=== PATIENT | male | born 1955 | race Caucasian/White ===

== ENCOUNTER 2017-01-23 06:59 | Emergency (ER) | payer BC ==
[2017-01-23] MEDS ORDERED: SODIUM CHLORIDE 0.9% 1,000 ML IV STA (07:22)
--- NOTE | 2017-01-23 07:28 | ED ---
Extremity Problem HPI - General Chief complaint: Extremity Problem,Nontraumatic Stated complaint: left arm numbness Time Seen by Provider: 01/23/17 07:10 Source: patient, RN notes reviewed Mode of arrival: wheelchair Limitations: no limitations - History of Present Illness Initial comments: This is a 61-year-old male with a history of Waldenstrm's who states he had the onset this morning while in the shower noticing his left arm was not feeling right was demonstrating some numbness. He denies any weakness to the arm he denies any recent headaches he does occasionally get headaches when he gets constipated. Denies any blurry vision head neck or back pain he is left- hand dominant he's noticed no difference in his strength balance and no other neurological findings. He does admit he is been doing a lot of work on his garage including last night putting down a match in the garage. He believes he may have strained himself. He does also state recently he had Dopplers done of all of his arteries from his doctor who is a vascular specialist. He does not smoke does not drink alcohol denies any substance abuse denies any other trauma fevers chills sweats or other symptoms. MD Complaint: other - Related Data Home Medications Medication Instructions Recorded Confirmed Atorvastatin [Lipitor] 10 mg PO HS 11/17/15 01/23/17 Calcium Carbonate [Calcium] 600 mg PO DAILY 01/23/17 01/23/17 Cholecalciferol [Vitamin D3] 1,000 unit PO DAILY 01/23/17 01/23/17 Fluticasone Nasal [place] [Flonase 2 spr EA NOSTRIL HS PRN 01/23/17 01/23/17 Nasal [place]] Loratadine [Claritin] 10 mg PO DAILY 01/23/17 01/23/17 Magnesium 200 mg PO DAILY 01/23/17 01/23/17 Montelukast [Singulair] 10 mg PO HS 01/23/17 01/23/17 [place]-3 Fatty Acids/Fish Oil [Fish 1 cap PO DAILY 01/23/17 01/23/17 Oil 1,000 mg Softgel] Zinc 50 mg PO DAILY 01/23/17 01/23/17 amLODIPine [Norvasc] 10 mg PO HS 01/23/17 01/23/17 Previous Rx's Medication Instructions Recorded Ibuprofen 800 mg PO Q6HR PRN #20 tablet 01/23/17 Allergies Allergy/AdvReac Type Severity Reaction Status Date / Time No Known Allergies Allergy Verified 01/23/17 07:38 Review of Systems ROS Statement: Those systems with pertinent positive or pertinent negative responses have been documented in the HPI. ROS Other: All systems not noted in ROS Statement are negative. Past Medical History Past Medical History: Hyperlipidemia, Hypertension Additional Past Medical History / Comment(s): Waldenstrom Macroglobulinemia History of Any Multi-Drug Resistant Organisms: None Reported Past Surgical History: No Surgical Hx Reported Past Anesthesia/Blood Transfusion Reactions: No Reported Reaction Past Psychological History: No Psychological Hx Reported Smoking Status: Never smoker Past Alcohol Use History: None Reported Past Drug Use History: None Reported General Exam - General Exam Comments Initial Comments: This is a well-developed well-nourished awake alert oriented 3 male Limitations: no limitations General appearance: alert, in no apparent distress Head exam: Present: atraumatic, normocephalic, normal inspection Eye exam: Present: normal appearance, PERRL, EOMI. Absent: scleral icterus, conjunctival injection, periorbital swelling ENT exam: Present: normal exam, mucous membranes moist Neck exam: Present: normal inspection, full ROM. Absent: tenderness, meningismus, lymphadenopathy Respiratory exam: Present: normal lung sounds bilaterally. Absent: respiratory distress, wheezes, rales, rhonchi, stridor Cardiovascular Exam: Present: regular rate, normal rhythm, normal heart sounds. Absent: systolic murmur, diastolic murmur, rubs, gallop, clicks GI/Abdominal exam: Present: soft, normal bowel sounds. Absent: distended, tenderness, guarding, rebound, rigid Extremities exam: Present: normal inspection, full ROM, normal capillary refill. Absent: tenderness, pedal edema, joint swelling, calf tenderness Back exam: Present: normal inspection Neurological exam: Present: alert, oriented X3, CN II-XII intact, reflexes normal, other (Patient states on light touch she has no different from left to right side he does state feels numb however when I squeeze his bicep tricep and forearm musculature.) Psychiatric exam: Present: normal affect, normal mood Skin exam: Present: warm, dry, intact, normal color. Absent: rash Course Vital Signs 01/23/17 01/23/17 01/23/17 07:02 07:15 07:30 Temperature 98.9 F 98.2 F 98.5 F Pulse Rate 90 90 84 Respiratory 16 17 16 Rate Blood Pressure 156/81 149/76 137/78 O2 Sat by Pulse 94 L 95 95 Oximetry 01/23/17 01/23/17 07:45 08:00 Temperature 98.3 F 98.0 F Pulse Rate 92 83 Respiratory 17 17 Rate Blood Pressure 156/81 151/81 O2 Sat by Pulse 95 95 Oximetry - Reevaluation(s) Reevaluation #1: 01/23/17 07:28 I did perform a NIH stroke scale is number is 0 Medical Decision Making - Medical Decision Making Reevaluation patient finds he is feeling improved the presentation is consistent with a musculoskeletal etiology/cervical radicular etiology. We did a long discussion regarding the findings patient is able to take ibuprofen I did recommend this. He is follow-up with Dr. rosas when necessary - Lab Data Result diagrams: 01/23/17 07:30 01/23/17 07:30 Lab Results 01/23/17 01/23/17 01/23/17 Range/Units 07:30 07:30 07:30 WBC 5.1 (3.8-10.6) k/uL RBC 4.65 (4.30-5.90) m/uL Hgb 14.6 (13.0-17.5) gm/dL Hct 43.0 (39.0-53.0) % MCV 92.4 (80.0-100.0) fL MCH 31.4 (25.0-35.0) pg MCHC 34.0 (31.0-37.0) g/dL RDW 12.7 (11.5-15.5) % Plt Count 209 (150-450) k/uL Neutrophils % 59 % Lymphocytes % 21 % Monocytes % 12 % Eosinophils % 5 % Basophils % 1 % Neutrophils # 3.0 (1.3-7.7) k/uL Lymphocytes # 1.1 (1.0-4.8) k/uL Monocytes # 0.6 (0-1.0) k/uL Eosinophils # 0.2 (0-0.7) k/uL Basophils # 0.0 (0-0.2) k/uL PT (9.0-12.0) sec INR (<1.2) APTT (22.0-30.0) sec Sodium 141 (137-145) mmol/L Potassium 4.4 (3.5-5.1) mmol/L Chloride 106 (98-107) mmol/L Carbon Dioxide 25 (22-30) mmol/L Anion Gap 10 mmol/L BUN 17 (9-20) mg/dL Creatinine 1.00 (0.66-1.25) mg/dL Est GFR (MDRD) Af Amer >60 (>60 ml/min/1.73 sqM) Est GFR (MDRD) Non-Af >60 (>60 ml/min/1.73 sqM) Glucose 101 H (74-99) mg/dL POC Glucose (mg/dL) (75-99) mg/dL POC Glu [place] ID Calcium 9.3 (8.4-10.2) mg/dL Magnesium 2.2 (1.6-2.3) mg/dL Total Bilirubin 0.8 (0.2-1.3) mg/dL AST 25 (17-59) U/L ALT 41 (21-72) U/L Alkaline Phosphatase 88 (38-126) U/L Total Creatine Kinase 114 (55-170) U/L CK-MB (CK-2) 1.7 (0.0-2.4) ng/mL CK-MB (CK-2) Rel Index 1.5 Troponin I <0.012 (0.000-0.034) ng/mL Total Protein 7.1 (6.3-8.2) g/dL Albumin 3.6 (3.5-5.0) g/dL TSH 2.780 (0.465-4.680) mIU/L 01/23/17 01/23/17 Range/Units 07:30 07:45 WBC (3.8-10.6) k/uL RBC (4.30-5.90) m/uL Hgb (13.0-17.5) gm/dL Hct (39.0-53.0) % MCV (80.0-100.0) fL MCH (25.0-35.0) pg MCHC (31.0-37.0) g/dL RDW (11.5-15.5) % Plt Count (150-450) k/uL Neutrophils % % Lymphocytes % % Monocytes % % Eosinophils % % Basophils % % Neutrophils # (1.3-7.7) k/uL Lymphocytes # (1.0-4.8) k/uL Monocytes # (0-1.0) k/uL Eosinophils # (0-0.7) k/uL Basophils # (0-0.2) k/uL PT 11.7 (9.0-12.0) sec INR 1.2 H (<1.2) APTT 27.1 (22.0-30.0) sec Sodium (137-145) mmol/L Potassium (3.5-5.1) mmol/L Chloride (98-107) mmol/L Carbon Dioxide (22-30) mmol/L Anion Gap mmol/L BUN (9-20) mg/dL Creatinine (0.66-1.25) mg/dL Est GFR (MDRD) Af Amer (>60 ml/min/1.73 sqM) Est GFR (MDRD) Non-Af (>60 ml/min/1.73 sqM) Glucose (74-99) mg/dL POC Glucose (mg/dL) 96 (75-99) mg/dL POC Glu [place] ID McDaid, Pilar Calcium (8.4-10.2) mg/dL Magnesium (1.6-2.3) mg/dL Total Bilirubin (0.2-1.3) mg/dL AST (17-59) U/L ALT (21-72) U/L Alkaline Phosphatase (38-126) U/L Total Creatine Kinase (55-170) U/L CK-MB (CK-2) (0.0-2.4) ng/mL CK-MB (CK-2) Rel Index Troponin I (0.000-0.034) ng/mL Total Protein (6.3-8.2) g/dL Albumin (3.5-5.0) g/dL TSH (0.465-4.680) mIU/L - EKG Data -: EKG Interpreted by Me EKG shows normal: sinus rhythm, axis, intervals, QRS complexes, ST-T waves (EKG shows normal sinus rhythm a 75 MO 164 QRS 90 QT since QTC of 364/[address]-T wave changes.) Rate: normal - Radiology Data Radiology results: report reviewed (I did review the imaging and reports no acute findings.), image reviewed (CT of the C-spine shows evidence of arthropathy.) Disposition Clinical Impression: Cervical radiculopathy, Numbness and tingling in left arm Disposition: HOME SELF-CARE Condition: Good Instructions: Cervical Radiculopathy (ED), Paresthesia (ED) Prescriptions: Ibuprofen 800 mg PO Q6HR PRN #20 tablet PRN Reason: Pain Referrals: Jonh Luciano MD [Primary Care Provider] - 1-2 days
[2017-01-23 07:50] LABS: Glucose,Whole Blood 96 mg/dL (75-99)
[2017-01-23 07:51] LABS: Basophils % (A) 1 %; CH 31.7; CHCM 34.4; Eosinophils # (A) 0.2 k/uL (0-0.7); Eosinophils % (A) 5 %; HDW 2.82; HGB 14.6 gm/dL (13.0-17.5); Luc # (Auto) 0.13; Luc % (Auto) 3; Lymphocytes # (A) 1.1 k/uL (1.0-4.8); Lymphocytes % (A) 21 %; MCH 31.4 pg (25.0-35.0); MCV 92.4 fL (80.0-100.0); Mean Platelet Volume 7.3; Monocytes # (A) 0.6 k/uL (0-1.0); Monocytes % (A) 12 %; Neutrophils % (A) 59 %; RBC 4.65 m/uL (4.30-5.90); RDW 12.7 % (11.5-15.5); WBC 5.1 k/uL (3.8-10.6); WBC (Perox) 4.97
[2017-01-23 08:01] LABS: INR 1.2 (<1.2); Partial Thromboplastin Time 27.1 sec (22.0-30.0); Prothrombin Time 11.7 sec (9.0-12.0)
[2017-01-23 08:02] LABS: ALT 41 U/L (21-72); AST 25 U/L (17-59); Alkaline Phosphatase 88 U/L (38-126); Anion Gap 10 mmol/L; Blood Urea Nitrogen 17 mg/dL (9-20); Calcium 9.3 mg/dL (8.4-10.2); Carbon Dioxide 25 mmol/L (22-30); Chloride 106 mmol/L (98-107); Glucose 101 mg/dL (74-99); Magnesium 2.2 mg/dL (1.6-2.3); Non-African American GFR(MDRD) >60 (>60 ml/min/1.73 sqM); Potassium 4.4 mmol/L (3.5-5.1); Sodium 141 mmol/L (137-145); Total Bilirubin 0.8 mg/dL (0.2-1.3); Total Protein 7.1 g/dL (6.3-8.2)
[2017-01-23 08:17] VITALS: RESP 17
[2017-01-23 08:19] LABS: Creatine Kinase 114 U/L (55-170)
--- NOTE | 2017-01-23 08:23 | CT ---
EXAMINATION TYPE: CT brain ladan alfonso DATE OF EXAM: 01/23/2017 COMPARISON: NONE HISTORY: 61-year-old male with pain and Left arm numbness CT DLP: 1398.1 mGycm Automated exposure control for dose reduction was used. Technique: Examination of the head was done in axial plane without intravenous contrast. Coronal and sagittal reconstructions performed. CT of the cervical spine was obtained in axial plane without intravenous injection of contrast mater ial. Coronal and sagittal reformatted images were obtained from the axial views for evaluation of f ractures, spinal alignment and canal. FINDINGS: Head: There is no evidence of acute intracranial hemorrhage, acute ischemic changes, mass, mass-effect, or extra-axial fluid collection. There is no effacement of cerebral sulci or basal subarachnoid cister ns. There is no hydrocephalus. There is no midline shift. Diaz-white matter distinction is preserv ed. Paranasal sinuses and mastoid air cells are well pneumatized. Orbits and globes are intact. Leftward nasal septal deviation. No calvarial fracture. Cervical spine: No craniocervical junction abnormality, predental space widening, or prevertebral soft tissue swellin g. There is facet and uncovertebral joint arthropathy throughout with trace grade 1 anterolisthesis at C 5-C6 and C7-T1. No acute fracture of the cervical spine. Mild to moderate multilevel disc/endplate degenerative changes noted with disc osteophyte complexes c ausing variable mild to moderate spinal canal narrowing at C3-C4 and C4-C5. Assessment of the spinal canal from C6-C7 and below is limited due to artifact from the patient's shoulders. 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 Variable mild neuroforaminal stenoses throughout. Sagittal and coronal reformatted images confirm above findings. COMBINED IMPRESSION: 1. No acute intracranial abnormality seen. 2. No acute fracture of the cervical spine. There are moderate overall spondylotic changes with trace grade 1 anterolisthesis at C5-C6 and C7-T1. Mild, possibly moderate spinal canal stenoses at C3-C4 a nd C4-C5.
--- NOTE | 2017-01-23 08:25 | XR ---
EXAMINATION TYPE: XR chest 2V DATE OF EXAM: 01/23/2017 COMPARISON: 12/01/2009 HISTORY: 61 year-old male altered mental status, left arm numbness today TECHNIQUE: PA and lateral views FINDINGS: The cardiomediastinal silhouette, aorta, and pulmonary vasculature are within normal limits. Mild int erstitial prominence likely chronic senescent change. Otherwise, lungs and pleural spaces are clear. 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 IMPRESSION: 1. Chronic changes without acute cardiopulmonary process. 2. 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
[2017-01-23 08:32] LABS: Creatine Kinase MB 1.7 ng/mL (0.0-2.4); Troponin I <0.012 ng/mL (0.000-0.034)
[2017-01-23 09:03] VITALS: BP 127/73; PULSE 78; TEMP 97.8
== END 2017-01-23 09:02 | disposition home or self-care (01) ==
LOC: EC 06:59
DX: M54.12 Radiculopathy, cervical region (principal); R20.0 Anesthesia of skin; E78.5 Hyperlipidemia, unspecified; I10 Essential (primary) hypertension; Z79.899 Other long term (current) drug therapy
CPT/HCPCS: 36415; 70450; 71020; 72125; 80053; 82550; 82553; 83735; 84443; 84484; 85025; 85610; 85730; 93005; 96360; 99285

== ENCOUNTER 2017-05-14 18:23 | Emergency (ER) | payer BC ==
[2017-05-14 19:32] LABS: Appearance,Urine Clear (Clear); Bilirubin,Urine Negative (Negative); Blood,Urine Moderate (Negative); Color,Urine Yellow; Glucose,Urine (UA) Negative (Negative); Hyaline Casts,Urine 5 /lpf (0-2); Ketones,Urine Negative (Negative); Leukocyte Esterase,Urine Negative (Negative); Mucus,Urine Occasional /hpf; PH, Urine 5.5 (5.0-8.0); Protein,Urine Trace (Negative); RBC,Urine 60 /hpf (0-5); Specific Gravity,Urine 1.019 (1.001-1.035); Squamous Epithelial Cell,Urine <1 /hpf (0-4); WBC,Urine 2 /hpf (0-5)
[2017-05-14 19:41] LABS: Basophils # (A) 0.1 k/uL (0-0.2); Basophils % (A) 1 %; Eosinophils # (A) 0.2 k/uL (0-0.7); Eosinophils % (A) 3 %; HCT 42.8 % (39.0-53.0); HGB 14.1 gm/dL (13.0-17.5); Lymphocytes # (A) 1.3 k/uL (1.0-4.8); Lymphocytes % (A) 17 %; MCH 30.1 pg (25.0-35.0); MCHC 32.9 g/dL (31.0-37.0); MCV 91.3 fL (80.0-100.0); Mean Platelet Volume 7.2; Monocytes # (A) 0.6 k/uL (0-1.0); Monocytes % (A) 8 %; Neutrophils # (A) 5.6 k/uL (1.3-7.7); Neutrophils % (A) 70 %; Platelet Count 251 k/uL (150-450); RBC 4.69 m/uL (4.30-5.90); RDW 13.4 % (11.5-15.5)
[2017-05-14 19:53] LABS: ALT 26 U/L (21-72); AST 26 U/L (17-59); Albumin 4.1 g/dL (3.5-5.0); Alkaline Phosphatase 105 U/L (38-126); Amylase 47 U/L (30-110); Anion Gap 11 mmol/L; Blood Urea Nitrogen 24 mg/dL (9-20); Calcium 9.7 mg/dL (8.4-10.2); Carbon Dioxide 29 mmol/L (22-30); Chloride 101 mmol/L (98-107); Glucose 117 mg/dL (74-99); Lipase 43 U/L (23-300); Potassium 4.6 mmol/L (3.5-5.1); Sodium 141 mmol/L (137-145); Total Bilirubin 0.8 mg/dL (0.2-1.3); Total Protein 8.2 g/dL (6.3-8.2)
--- NOTE | 2017-05-14 20:01 | CT ---
EXAMINATION TYPE: CT abdomen pelvis wo con DATE OF EXAM: 05/14/2017 COMPARISON: 11/16/2015 HISTORY: Lower abdominal pain. Hematuria CT DLP: 605.1 mGycm Automated exposure control for dose reduction was used. TECHNIQUE: Helical acquisition of images was performed from the lung bases through the pelvis. FINDINGS: Lung bases are clear of consolidation. There is no pleural effusion. Heart size is normal. There is a 1 cm cyst in the left lobe of the liver. There is a 1 senators cyst in the lateral right l obe of the liver. Gallbladder is normal. Spleen appears normal. There is no pancreatic mass. Bile malika ts are not dilated. There is no adrenal mass. Kidneys have normal size and contour. There is no hydronephrosis. Ureters a re not dilated. There is no retroperitoneal adenopathy. There is no ascites. Appendix appears normal. There are multiple diverticula in the sigmoid colon. There is no sign of diverticulitis. Bladder dis tends smoothly. I see no intestinal wall thickening. There is no evidence of a bowel obstruction. The re is no sign of a hernia. I see no focal bony destructive process. There is spondylosis in the lower lumbar spine from L3 to S1. There is mild spinal stenosis at L3-4 due to calcification in posterior disc herniation. IMPRESSION: STABLE HEPATIC CYSTS. NORMAL APPENDIX. NO SIGN OF ACUTE ABDOMEN AND PELVIS. SIGMOID DIVERTICULOSIS WI THOUT DIVERTICULITIS. I DO NOT SEE A CAUSE FOR ABDOMINAL PAIN. NONOBSTRUCTING 3 MM LEFT RENAL CALCULU S. THIS APPEARS INCREASED COMPARED TO OLD CT SCAN.
--- NOTE | 2017-05-14 20:30 | ED ---
General Adult HPI - General Chief complaint: Abdominal Pain Stated complaint: abdominal pain Time Seen by Provider: 05/14/17 18:56 Source: patient, RN notes reviewed Mode of arrival: ambulatory Limitations: no limitations - History of Present Illness Initial comments: 61-year-old male presents for evaluation of left flank and left lower abdominal pain. Pain began suddenly. Patient denies any hematuria or dysuria. Denies any testicular or scrotal pain. Pain was associated with nausea, no significant vomiting. No upper abdominal pain or chest pain. No fever or chills. Pain was resolving at the time my evaluation. No known history of kidney stones. Patient does have past medical history of hypertension and lymphoma currently in remission. - Related Data Home Medications Medication Instructions Recorded Confirmed Atorvastatin [Lipitor] 10 mg PO HS 11/17/15 05/14/17 Calcium Carbonate [Calcium] 600 mg PO DAILY 01/23/17 05/14/17 Cholecalciferol [Vitamin D3] 1,000 unit PO DAILY 01/23/17 05/14/17 Loratadine [Claritin] 10 mg PO DAILY PRN 01/23/17 05/14/17 Magnesium 200 mg PO DAILY 01/23/17 05/14/17 Montelukast [Singulair] 10 mg PO HS 01/23/17 05/14/17 [place]-3 Fatty Acids/Fish Oil [Fish 1 cap PO DAILY 01/23/17 05/14/17 Oil 1,000 mg Softgel] Zinc 50 mg PO DAILY 01/23/17 05/14/17 amLODIPine [Norvasc] 10 mg PO HS 01/23/17 05/14/17 Allergies Allergy/AdvReac Type Severity Reaction Status Date / Time No Known Allergies Allergy Verified 05/14/17 19:21 Review of Systems ROS Statement: Those systems with pertinent positive or pertinent negative responses have been documented in the HPI. ROS Other: All systems not noted in ROS Statement are negative. Past Medical History Past Medical History: Cancer, Hypertension Additional Past Medical History / Comment(s): Waldenstrom Macroglobulinemia, lymphoma History of Any Multi-Drug Resistant Organisms: None Reported Past Surgical History: No Surgical Hx Reported Past Anesthesia/Blood Transfusion Reactions: No Reported Reaction Past Psychological History: No Psychological Hx Reported Smoking Status: Never smoker Past Alcohol Use History: None Reported Past Drug Use History: None Reported General Exam Limitations: no limitations General appearance: alert, in no apparent distress Head exam: Present: atraumatic, normocephalic Eye exam: Present: normal appearance, PERRL, EOMI ENT exam: Present: normal exam Neck exam: Present: normal inspection. Absent: tenderness, meningismus Respiratory exam: Present: normal lung sounds bilaterally. Absent: respiratory distress, wheezes, rales Cardiovascular Exam: Present: regular rate, normal rhythm GI/Abdominal exam: Present: soft. Absent: distended, tenderness, guarding Extremities exam: Present: normal inspection, normal capillary refill. Absent: pedal edema Back exam: Present: normal inspection, full ROM. Absent: CVA tenderness (R), CVA tenderness (L) Neurological exam: Present: alert, oriented X3, CN II-XII intact. Absent: motor sensory deficit Psychiatric exam: Present: normal affect, normal mood Skin exam: Present: warm, dry, intact. Absent: cyanosis, diaphoretic Course Vital Signs 05/14/17 18:28 Temperature 97.8 F Pulse Rate 74 Respiratory 20 Rate Blood Pressure 105/58 O2 Sat by Pulse 99 Oximetry - Reevaluation(s) Reevaluation #1: 05/14/17 20:29 On reevaluation, patient is pain-free. He did not require any pain medication the emergency department. Medical Decision Making - Medical Decision Making 61-year-old male presenting with flank pain and lower abdominal pain. History consistent with kidney stone. Urinalysis shows 60 red blood cells. CBC and CMP are unremarkable. Computed tomography scan of the abdomen without contrast shows 3 mm nonobstructing renal stone in the right kidney. Given the fact that the patient is pain-free with 60 red blood cells in the urinalysis, he likely passed a renal stone. He remains pain-free. CT shows no other acute findings. Patient will follow-up with primary care physician return with any worsening or changing symptoms. - Lab Data Result diagrams: 05/14/17 19:19 05/14/17 19:19 Lab Results 05/14/17 05/14/17 05/14/17 Range/Units 19:15 19:19 19:19 WBC 8.0 (3.8-10.6) k/uL RBC 4.69 (4.30-5.90) m/uL Hgb 14.1 (13.0-17.5) gm/dL Hct 42.8 (39.0-53.0) % MCV 91.3 (80.0-100.0) fL MCH 30.1 (25.0-35.0) pg MCHC 32.9 (31.0-37.0) g/dL RDW 13.4 (11.5-15.5) % Plt Count 251 (150-450) k/uL Neutrophils % 70 % Lymphocytes % 17 % Monocytes % 8 % Eosinophils % 3 % Basophils % 1 % Neutrophils # 5.6 (1.3-7.7) k/uL Lymphocytes # 1.3 (1.0-4.8) k/uL Monocytes # 0.6 (0-1.0) k/uL Eosinophils # 0.2 (0-0.7) k/uL Basophils # 0.1 (0-0.2) k/uL Sodium 141 (137-145) mmol/L Potassium 4.6 (3.5-5.1) mmol/L Chloride 101 (98-107) mmol/L Carbon Dioxide 29 (22-30) mmol/L Anion Gap 11 mmol/L BUN 24 H (9-20) mg/dL Creatinine 1.10 (0.66-1.25) mg/dL Est GFR (MDRD) Af Amer >60 (>60 ml/min/1.73 sqM) Est GFR (MDRD) Non-Af >60 (>60 ml/min/1.73 sqM) Glucose 117 H (74-99) mg/dL Plasma Lactic Acid [place] (0.7-2.0) mmol/L Calcium 9.7 (8.4-10.2) mg/dL Total Bilirubin 0.8 (0.2-1.3) mg/dL AST 26 (17-59) U/L ALT 26 (21-72) U/L Alkaline Phosphatase 105 (38-126) U/L Total Protein 8.2 (6.3-8.2) g/dL Albumin 4.1 (3.5-5.0) g/dL Amylase 47 (30-110) U/L Lipase 43 (23-300) U/L Urine Color Yellow Urine Appearance Clear (Clear) Urine pH 5.5 (5.0-8.0) Ur Specific [place] 1.019 (1.001-1.035) Urine Protein Trace H (Negative) Urine Glucose (UA) Negative (Negative) Urine Ketones Negative (Negative) Urine Blood Moderate H (Negative) Urine Nitrite Negative (Negative) Urine Bilirubin Negative (Negative) Urine Urobilinogen 2.0 (<2.0) mg/dL Ur Leukocyte Esterase Negative (Negative) Urine RBC 60 H (0-5) /hpf Urine WBC 2 (0-5) /hpf Ur Squamous Epith Cells <1 (0-4) /hpf Hyaline Casts 5 H (0-2) /lpf Urine Mucus Occasional H (None) /hpf 05/14/17 Range/Units 19:19 WBC (3.8-10.6) k/uL RBC (4.30-5.90) m/uL Hgb (13.0-17.5) gm/dL Hct (39.0-53.0) % MCV (80.0-100.0) fL MCH (25.0-35.0) pg MCHC (31.0-37.0) g/dL RDW (11.5-15.5) % Plt Count (150-450) k/uL Neutrophils % % Lymphocytes % % Monocytes % % Eosinophils % % Basophils % % Neutrophils # (1.3-7.7) k/uL Lymphocytes # (1.0-4.8) k/uL Monocytes # (0-1.0) k/uL Eosinophils # (0-0.7) k/uL Basophils # (0-0.2) k/uL Sodium (137-145) mmol/L Potassium (3.5-5.1) mmol/L Chloride (98-107) mmol/L Carbon Dioxide (22-30) mmol/L Anion Gap mmol/L BUN (9-20) mg/dL Creatinine (0.66-1.25) mg/dL Est GFR (MDRD) Af Amer (>60 ml/min/1.73 sqM) Est GFR (MDRD) Non-Af (>60 ml/min/1.73 sqM) Glucose (74-99) mg/dL Plasma Lactic Acid [place] 0.8 (0.7-2.0) mmol/L Calcium (8.4-10.2) mg/dL Total Bilirubin (0.2-1.3) mg/dL AST (17-59) U/L ALT (21-72) U/L Alkaline Phosphatase (38-126) U/L Total Protein (6.3-8.2) g/dL Albumin (3.5-5.0) g/dL Amylase (30-110) U/L Lipase (23-300) U/L Urine Color Urine Appearance (Clear) Urine pH (5.0-8.0) Ur Specific [place] (1.001-1.035) Urine Protein (Negative) Urine Glucose (UA) (Negative) Urine Ketones (Negative) Urine Blood (Negative) Urine Nitrite (Negative) Urine Bilirubin (Negative) Urine Urobilinogen (<2.0) mg/dL Ur Leukocyte Esterase (Negative) Urine RBC (0-5) /hpf Urine WBC (0-5) /hpf Ur Squamous Epith Cells (0-4) /hpf Hyaline Casts (0-2) /lpf Urine Mucus (None) /hpf Disposition Clinical Impression: Calculus of kidney Disposition: HOME SELF-CARE Condition: Good Instructions: Kidney Stones (ED) Referrals: John Luciano MD [Primary Care Provider] - 1-2 days Time of Disposition: 20:30
[2017-05-14 20:51] VITALS: BP 133/89; PULSE 88; RESP 18; TEMP 99.2
== END 2017-05-14 20:50 | disposition home or self-care (01) ==
LOC: EC 18:23
DX: N20.0 Calculus of kidney (principal); I10 Essential (primary) hypertension; Z85.72 Personal history of non-Hodgkin lymphomas; Z79.899 Other long term (current) drug therapy
CPT/HCPCS: 36415; 74176; 80053; 81001; 82150; 83605; 83690; 85025; 99284

== ENCOUNTER 2018-11-20 05:57 | Day surgery (SDC) | payer BC ==
[2018-11-18 08:34] VITALS: BMI 27.1
[~2018-11-20 05:57] MED LIST: LACTATED RINGERS 1,000 ML IV SCH; LIDOCAINE 1% 20 ML VIAL (10MG/ML) FOR IV START INTRADERMA PRN
[2018-11-20 06:50] VITALS: TEMP 97.9
[2018-11-20] MEDS ORDERED: PROPOFOL 10 MG/ML 20 ML VIAL IV ONE (07:05)
[2018-11-20] MEDS ORDERED: LIDOCAINE 1% INJ 10MG/ML (20 ML MDV) ONE (07:05)
[2018-11-20 08:02] VITALS: BP 108/67; PULSE 77; RESP 18
[2018-11-20 08:05] LABS: Anisocytosis Slight; HCT 26.2 % (39.0-53.0); MCH 31.2 pg (25.0-35.0); MCHC 34.4 g/dL (31.0-37.0); MCV 90.5 fL (80.0-100.0); Mean Platelet Volume 8.1; Platelet Count 238 k/uL (150-450); RDW 17.1 % (11.5-15.5); WBC 4.2 k/uL (3.8-10.6)
[2018-11-20 08:51] LABS: Basophils # (M) 0.04 k/uL (0-0.2); Eosinophils # (M) 0.29 k/uL (0-0.7); Lymphocytes # (M) 1.22 k/uL (1.0-4.8); Monocytes # (M) 0.88 k/uL (0-1.0); Myelocytes # (M) 0.04 k/uL (0); Myelocytes % 1 %; Neutrophils % (M) 43 %; Nucleated Red Blood Cells 0 /100 WBC (0-0); Rouleaux Present; Total Cells Counted 200
[2018-11-20 08:55] LABS: Reticulocyte % 2.1 % (0.5-2.0)
--- NOTE | 2018-11-20 12:16 | PCN ---
PROCEDURE NOTE DATE OF SERVICE: 11/20/2018 PROCEDURE: Bone marrow aspirate and biopsy. INDICATION: Waldenstrom macroglobulinemia. After obtaining consent from the patient, the procedure was performed in the endoscopy suite under general anesthesia performed by the Anesthesia Team. The patient was put in the left lateral decubitus position. The right posterior superior iliac crest was localized. The skin was prepped with ChloraPrep. All sterile procedures were followed. One mL 2% Xylocaine was used for local anesthetic. A 1 inch needle was inserted. It was a dry tap. However, 2 cores were obtained, one was about 1.5 cm and one was about 2 cm. Pressure applied afterwards. There was negligible blood loss. Patient tolerated the procedure very well without any immediate complications. MMODL / IJN: [id number] /
== END 2018-11-20 08:23 | disposition home or self-care (01) ==
LOC: OR 05:57
PROVIDERS: ATTEND Internal Medicine Hematology & Oncology
DX: C88.0 Waldenstrom macroglobulinemia (principal); G60.9 Hereditary and idiopathic neuropathy, unspecified; E78.5 Hyperlipidemia, unspecified; I10 Essential (primary) hypertension; Z79.51 Long term (current) use of inhaled steroids; Z79.899 Other long term (current) drug therapy
CPT/HCPCS: 85025; 85045; 38222; J2001; J2704

== ENCOUNTER 2021-05-12 17:35 | Emergency (ER) | payer BC ==
[2021-05-12 17:46] VITALS: PULSE 89; TEMP 97.9
[2021-05-12] MEDS ORDERED: DEXAMETHASONE SOD PHOSPHATE 10 MG/ML 1 ML VIAL IM STA (18:09)
[2021-05-12] MEDS ORDERED: diphenhydrAMINE 50 MG CAP PO STA (18:09)
--- NOTE | 2021-05-12 18:14 | ED ---
General Adult HPI - General Chief complaint: Upper Respiratory Infection Stated complaint: GEE Time Seen by Provider: 05/12/21 18:08 Source: patient, family, RN notes reviewed, old records reviewed Mode of arrival: ambulatory Limitations: no limitations - History of Present Illness Initial comments: 65-year-old male presents to the emergency room with complaints of nasal congestion and sinus pressure since night. Patient started Flomax and he believes that the medication is the cause of his congestion. He did try [id number] nasal spray with no relief. He denies any nausea, vomiting, diarrhea, rash, shortness of breath, chest pain or fevers. -: days(s) (3) Location: face (sinus congestion) Severity scale (1-10): 0 Consistency: constant Improves with: none Worsens with: none Associated Symptoms: denies other symptoms Treatments Prior to Arrival: other (mucinex nasal spray) - Related Data Home Medications Medication Instructions Recorded Confirmed Montelukast [Singulair] 10 mg PO HS 01/23/17 05/12/21 amLODIPine [Norvasc] 10 mg PO HS 01/23/17 05/12/21 Fluticasone Nasal [place] [Flonase 1 spray EA NOSTRIL DAILY 05/12/21 05/12/21 Nasal [place]] Ibrutinib [Imbruvica] 420 mg PO DAILY 05/12/21 05/12/21 Latanoprost [Xalatan 0.005%] 1 drop BOTH EYES HS 05/12/21 05/12/21 Sulfamethox-Tmp 800-160Mg [Bactrim 1 tab PO Q12HR 05/12/21 05/12/21 DS 800-160 mg] Tamsulosin [Flomax] 0.4 mg PO HS 05/12/21 05/12/21 Allergies Allergy/AdvReac Type Severity Reaction Status Date / Time No Known Allergies Allergy Verified 05/12/21 18:43 Review of Systems ROS Statement: Those systems with pertinent positive or pertinent negative responses have been documented in the HPI. ROS Other: All systems not noted in ROS Statement are negative. Past Medical History Past Medical History: Cancer, Hypertension Additional Past Medical History / Comment(s): anemia,fatigue,Waldenstrom Macroglobulinemia, lymphoma-intermittent chemo last 7-8 yrs-last chemo Dec 2017 History of Any Multi-Drug Resistant Organisms: None Reported Past Surgical History: No Surgical Hx Reported Additional Past Surgical History / Comment(s): bone aspirations x2 Past Anesthesia/Blood Transfusion Reactions: No Reported Reaction Past Psychological History: No Psychological Hx Reported Smoking Status: Never smoker Past Alcohol Use History: None Reported Past Drug Use History: None Reported - Past Family History Mother Family Medical History: No Reported History General Exam Limitations: no limitations General appearance: alert, in no apparent distress Head exam: Present: atraumatic, normocephalic, normal inspection ENT exam: Present: normal exam, normal oropharynx, mucous membranes moist Neck exam: Present: normal inspection. Absent: tenderness, meningismus Respiratory exam: Present: normal lung sounds bilaterally. Absent: respiratory distress, accessory muscle use, decreased breath sounds Cardiovascular Exam: Present: regular rate, normal heart sounds Neurological exam: Present: alert, oriented X3, normal gait Psychiatric exam: Present: normal affect, normal mood Skin exam: Present: warm, dry, normal color. Absent: cyanosis, diaphoretic Course Vital Signs 05/12/21 05/12/21 05/12/21 17:41 18:39 21:28 Temperature 97.9 F 97.9 F Pulse Rate 89 89 Respiratory 22 24 16 Rate Blood Pressure 173/86 145/80 O2 Sat by Pulse 95 98 Oximetry EKG Findings - EKG Results: EKG: sinus rhythm (ventricular rate of 65, MS interval 0.184, QRS 0.103, QTC 0.422) Medical Decision Making - Medical Decision Making 64-year-old male presents to the emergency room with sinus congestion states it started after taking Flomax and he thinks this is a drug reaction. Patient was given Decadron and Benadryl and Pepcid in the emergency room to treat symptoms of an adverse drug reaction. He became nauseous and was given Zofran and IV fluids. Troponin is negative and EKG has no sign of ST elevation. Patient is feeling much better and ready to be discharged home. I did direct the patient to take Benadryl as needed every 6-8 hours in addition to Pepcid. Stop taking the Flomax and call his doctor on Friday morning. He was instructed to return to the emergency room with any new or concerning symptoms. Vital signs are stable. Patient and family member agreeable to this plan of care. Case discussed with Dr. Izquierdo - Lab Data Result diagrams: 05/12/21 19:44 05/12/21 19:44 Lab Results 05/12/21 05/12/21 05/12/21 Range/Units 19:44 19:44 19:44 WBC 6.9 (3.8-10.6) k/uL RBC 4.82 (4.30-5.90) m/uL Hgb 15.2 (13.0-17.5) gm/dL Hct 45.3 (39.0-53.0) % MCV 93.9 (80.0-100.0) fL MCH 31.5 (25.0-35.0) pg MCHC 33.5 (31.0-37.0) g/dL RDW 13.8 (11.5-15.5) % Plt Count 107 L (150-450) k/uL MPV 10.2 Neutrophils % 58 % Lymphocytes % 25 % Monocytes % 11 % Eosinophils % 2 % Basophils % 1 % Neutrophils # 4.0 (1.3-7.7) k/uL Lymphocytes # 1.7 (1.0-4.8) k/uL Monocytes # 0.7 (0-1.0) k/uL Eosinophils # 0.1 (0-0.7) k/uL Basophils # 0.1 (0-0.2) k/uL Sodium 138 (137-145) mmol/L Potassium 3.7 (3.5-5.1) mmol/L Chloride 108 H (98-107) mmol/L Carbon Dioxide 20 L (22-30) mmol/L Anion Gap 10 mmol/L BUN 20 (9-20) mg/dL Creatinine 1.35 H (0.66-1.25) mg/dL Est GFR (CKD-EPI)AfAm 64 (>60 ml/min/1.73 sqM) Est GFR (CKD-EPI)NonAf 55 (>60 ml/min/1.73 sqM) Glucose 119 H (74-99) mg/dL Calcium 8.3 L (8.4-10.2) mg/dL Magnesium 2.0 (1.6-2.3) mg/dL Total Bilirubin 0.8 (0.2-1.3) mg/dL AST 21 (17-59) U/L ALT 16 (4-49) U/L Alkaline Phosphatase 64 (38-126) U/L Troponin I <0.012 (0.000-0.034) ng/mL Total Protein 5.6 L (6.3-8.2) g/dL Albumin 3.7 (3.5-5.0) g/dL Disposition Clinical Impression: Sinus congestion, Drug reaction Disposition: HOME SELF-CARE Condition: Good Instructions (If sedation given, give patient instructions): Adverse Drug Reaction (ED) Additional Instructions: You can take Pepcid 20 mg daily and Benadryl [id number] for nasal congestion or Coricidin high blood pressure nasal spray. Follow-up with the primary care doctor on Friday. Return to the emergency room if any new or concerning symptoms. Is patient prescribed a controlled substance at d/c from ED?: No Referrals: John Luciano MD [Primary Care Provider] - 1-2 days Time of Disposition: 21:27
[2021-05-12] MEDS ORDERED: ONDANSETRON ODT 4 MG TAB PO STA (18:53)
[2021-05-12] MEDS ORDERED: SODIUM CHLORIDE 0.9% 500 ML 500 ML IV STA (19:16)
[2021-05-12 19:55] LABS: Basophils # (A) 0.1 k/uL (0-0.2); Basophils % (A) 1 %; Eosinophils # (A) 0.1 k/uL (0-0.7); Eosinophils % (A) 2 %; HCT 45.3 % (39.0-53.0); HGB 15.2 gm/dL (13.0-17.5); Lymphocytes # (A) 1.7 k/uL (1.0-4.8); Lymphocytes % (A) 25 %; MCH 31.5 pg (25.0-35.0); MCHC 33.5 g/dL (31.0-37.0); MCV 93.9 fL (80.0-100.0); Mean Platelet Volume 10.2; Monocytes # (A) 0.7 k/uL (0-1.0); Monocytes % (A) 11 %; Neutrophils % (A) 58 %; Platelet Count 107 k/uL (150-450); RBC 4.82 m/uL (4.30-5.90); RDW 13.8 % (11.5-15.5); WBC 6.9 k/uL (3.8-10.6)
[2021-05-12 20:09] LABS: Albumin 3.7 g/dL (3.5-5.0); Calcium 8.3 mg/dL (8.4-10.2); Potassium 3.7 mmol/L (3.5-5.1); Total Bilirubin 0.8 mg/dL (0.2-1.3); Total Protein 5.6 g/dL (6.3-8.2)
[2021-05-12] MEDS ORDERED: SODIUM CHLORIDE 0.9% 500 ML 500 ML IV ONE (20:47)
[2021-05-12 21:29] VITALS: BP 145/80; RESP 16
[2021-05-12] MEDS ORDERED: FAMOTIDINE 20 MG/2 ML VIAL IV STA (21:32)
== END 2021-05-12 22:09 | disposition home or self-care (01) ==
LOC: EC 17:35
DX: R09.81 Nasal congestion (principal); T44.6X5A Adverse effect of alpha-adrenoreceptor antagonists, initial encounter; I10 Essential (primary) hypertension; Z79.899 Other long term (current) drug therapy
CPT/HCPCS: 36415; 93005; 80053; 83735; 84484; 85025; 99283; 96374; 96372; J1100

== ENCOUNTER 2021-05-14 21:38 | Emergency (ER) | payer BC ==
[2021-05-14 21:49] VITALS: RESP 18
[2021-05-14] MEDS ORDERED: PSEUDOEPHEDRINE 12HR 120 MG TABLET.ER PO STA (23:59)
[2021-05-15] MEDS ORDERED: predniSONE 20 MG TAB PO STA
[2021-05-15] MEDS ORDERED: ONDANSETRON ODT 4 MG TAB PO STA
--- NOTE | 2021-05-15 00:10 | ED ---
URI HPI - General Chief Complaint: Upper Respiratory Infection Stated Complaint: Congestion Time Seen by Provider: 05/14/21 22:59 Source: patient Mode of arrival: ambulatory - History of Present Illness Initial Comments: 65-year-old male presents to the emergency department with nasal congestion. Patient has sudden onset of nasal congestion starting on Friday. He began taking Bactrim and Flomax on night and therefore attributes his symptoms to that. He came into the emergency department was given Pepcid, steroids. Reports that he had an immediate bad reaction to the steroids however that they did work for him and gave him some relief. He has been taking Benadryl every 6 hours however the congestion has returned. He continues to use a Mucinex spray. Denies any fevers. No sick contacts with similar symptoms. Had Covid in February. Patient subsequently stopped taking the Flomax Friday. No headaches. No other alleviating, precipitating or modifying factors - Related Data Home Medications Medication Instructions Recorded Confirmed Montelukast [Singulair] 10 mg PO HS 01/23/17 05/14/21 amLODIPine [Norvasc] 10 mg PO HS 01/23/17 05/14/21 Fluticasone Nasal [place] [Flonase 1 spray EA NOSTRIL DAILY 05/12/21 05/14/21 Nasal [place]] Ibrutinib [Imbruvica] 420 mg PO DAILY 05/12/21 05/14/21 Latanoprost [Xalatan 0.005%] 1 drop BOTH EYES HS 05/12/21 05/14/21 Sulfamethox-Tmp 800-160Mg [Bactrim 1 tab PO Q12HR 05/12/21 05/14/21 DS 800-160 mg] Tamsulosin [Flomax] 0.4 mg PO HS 05/12/21 05/14/21 Previous Rx's Medication Instructions Recorded Ondansetron Odt [Zofran Odt] 4 mg PO Q8HR PRN #20 tab 05/15/21 Pseudoephedrine 12Hr [Sudafed 12Hr] 120 mg PO Q12H #20 tab 05/15/21 predniSONE [Deltasone] 20 mg PO BID #10 tab 05/15/21 Allergies Allergy/AdvReac Type Severity Reaction Status Date / Time No Known Allergies Allergy Verified 05/14/21 23:50 Review of Systems ROS Statement: Those systems with pertinent positive or pertinent negative responses have been documented in the HPI. ROS Other: All systems not noted in ROS Statement are negative. Past Medical History Past Medical History: Cancer, Hypertension Additional Past Medical History / Comment(s): anemia,fatigue,Waldenstrom Macroglobulinemia, lymphoma-intermittent chemo last 7-8 yrs-last chemo Dec 2017 History of Any Multi-Drug Resistant Organisms: None Reported Past Surgical History: No Surgical Hx Reported Additional Past Surgical History / Comment(s): bone aspirations x2 Past Anesthesia/Blood Transfusion Reactions: No Reported Reaction Past Psychological History: No Psychological Hx Reported Smoking Status: Never smoker Past Alcohol Use History: None Reported Past Drug Use History: None Reported - Past Family History Mother Family Medical History: No Reported History General Exam General appearance: alert, anxious Head exam: Present: atraumatic, normocephalic, normal inspection Eye exam: Present: normal appearance, PERRL, EOMI. Absent: scleral icterus, conjunctival injection, periorbital swelling ENT exam: Present: mucous membranes moist, TM's normal bilaterally, other (enlarged tubinates bilaterally. No polyps. No rhinorrhea) Neck exam: Present: normal inspection. Absent: tenderness, meningismus, lymphadenopathy Respiratory exam: Present: normal lung sounds bilaterally. Absent: respiratory distress, wheezes, rales, rhonchi, stridor Cardiovascular Exam: Present: regular rate, normal rhythm, normal heart sounds. Absent: systolic murmur, diastolic murmur, rubs, gallop, clicks GI/Abdominal exam: Present: soft, normal bowel sounds. Absent: distended, tenderness, guarding, rebound, rigid Extremities exam: Present: normal inspection, full ROM, normal capillary refill. Absent: tenderness, pedal edema, joint swelling, calf tenderness Back exam: Present: normal inspection Neurological exam: Present: alert, oriented X3, CN II-XII intact Psychiatric exam: Present: normal affect, normal mood Skin exam: Present: warm, dry, intact, normal color. Absent: rash Course Vital Signs 05/14/21 05/15/21 21:43 00:16 Temperature 98.9 F 97 F L Pulse Rate 69 78 Respiratory 18 18 Rate Blood Pressure 136/74 143/83 O2 Sat by Pulse 96 97 Oximetry Medical Decision Making - Medical Decision Making Upon arrival patient is placed in room 24. Thorough history and physical exam was performed. Patient is requesting steroids as they did initially help his symptoms. He will be given Zofran with the steroids. Patient also given a dose of Sudafed. Recommended taking the steroids and Sudafed twice daily. Eat before taking the medications. Recommend that the patient follow-up with ENT. Return for any new or worsening symptoms. Patient agreed to the treatment plan and was discharged home in stable condition Disposition Clinical Impression: Sinus congestion Disposition: HOME SELF-CARE Condition: Stable Instructions (If sedation given, give patient instructions): Sinusitis (ED) Additional Instructions: I recommend that you take Sudafed twice daily, steroids twice a day for 5 days and continue using your Flonase. Call tomorrow to make an appointment with the ENT. Return for any new or worsening symptoms. Prescriptions: predniSONE [Deltasone] 20 mg PO BID #10 tab Pseudoephedrine 12Hr [Sudafed 12Hr] 120 mg PO Q12H #20 tab Ondansetron Odt [Zofran Odt] 4 mg PO Q8HR PRN #20 tab PRN Reason: Nausea Is patient prescribed a controlled substance at d/c from ED?: No Referrals: John Luciano MD [Primary Care Provider] - 1-2 days Gilmer Maldonado DO [Doctor of Osteopathic Medicine] - 1-2 days Time of Disposition: 00:10
[2021-05-15 00:17] VITALS: BP 143/83; PULSE 78; TEMP 97
== END 2021-05-15 00:17 | disposition home or self-care (01) ==
LOC: EC 21:38
DX: R09.81 Nasal congestion (principal); I10 Essential (primary) hypertension; Z79.899 Other long term (current) drug therapy
CPT/HCPCS: 99282; J7512

== ENCOUNTER → 2022-01-23 | Outpatient (CLI) | payer BC ==
[~2022-01-23] MED LIST changes: -LACTATED RINGERS 1,000 ML IV SCH; -LIDOCAINE 1% 20 ML VIAL (10MG/ML) FOR IV START INTRADERMA PRN; +TIXAGEVIMAB/CILGAVIMAB (EUA) 300 MG/3 ML COMBO.PKG IM NR
[2022-01-23 13:13] VITALS: RESP 16; TEMP 97.7
[2022-01-23 14:51] VITALS: BP 158/83; PULSE 67
== END ==
LOC: PROCWHC3 12:54
PROVIDERS: ATTEND Internal Medicine Hematology & Oncology
DX: Z23 Encounter for immunization (principal); Z87.891 Personal history of nicotine dependence
CPT/HCPCS: Q0220; M0220

== ENCOUNTER 2023-07-31 23:36 | Emergency (ER) | payer MEDICARE ==
[2023-08-01 00:14] LABS: Basophils # (A) 0.1 k/uL (0-0.2); Basophils % (A) 1 %; Eosinophils # (A) 0.1 k/uL (0-0.7); Eosinophils % (A) 1 %; HCT 45.1 % (39.0-53.0); HGB 14.8 gm/dL (13.0-17.5); Lymphocytes # (A) 1.2 k/uL (1.0-4.8); Lymphocytes % (A) 10 %; MCH 29.8 pg (25.0-35.0); MCHC 32.7 g/dL (31.0-37.0); MCV 91.1 fL (80.0-100.0); Mean Platelet Volume 10.7; Monocytes # (A) 0.8 k/uL (0-1.0); Monocytes % (A) 7 %; Neutrophils # (A) 9.7 k/uL (1.3-7.7); Neutrophils % (A) 81 %; Platelet Count 119 k/uL (150-450); RBC 4.95 m/uL (4.30-5.90); WBC 12.1 k/uL (3.8-10.6)
[2023-08-01 00:27] LABS: Partial Thromboplastin Time 22.7 sec (22.0-30.0); Prothrombin Time 11.2 sec (10.0-12.5)
[2023-08-01 00:36] VITALS: TEMP 98.1
[2023-08-01 00:41] LABS: ALT 28 U/L (4-49); AST 23 U/L (17-59); African American GFR (CKD) >90 (>60 ml/min/1.73 sqM); Albumin 3.4 g/dL (3.5-5.0); Alkaline Phosphatase 94 U/L (38-126); Anion Gap 5 mmol/L; Blood Urea Nitrogen 23 mg/dL (9-20); Calcium 8.3 mg/dL (8.4-10.2); Carbon Dioxide 24 mmol/L (22-30); Chloride 109 mmol/L (98-107); Glucose 132 mg/dL (74-99); Lipase 105 U/L (23-300); Non-African American GFR(CKD) 78 (>60 ml/min/1.73 sqM); Potassium 3.5 mmol/L (3.5-5.1); Sodium 138 mmol/L (137-145); Total Bilirubin 0.7 mg/dL (0.2-1.3)
--- NOTE | 2023-08-01 00:44 | ED ---
Chest Pain HPI - General Chief Complaint: Chest Pain Stated Complaint: chest pain Time Seen by Provider: 07/31/23 23:45 Source: patient Mode of arrival: EMS Limitations: no limitations - History of Present Illness Initial Comments: 68-year-old male with past medical history of anemia, Waldenstrm's macroglobulinemia, lymphoma who presents to the emergency department reporting chest pain and shortness of breath. States that the symptoms started at 11 PM. He describes it as a pressure sensation. No associated nausea, vomiting or diaphoresis. He did receive nitro by EMS which did not change his pain. He denies any shortness of breath. No fevers chills or cough. No history of cardiac disease. No other alleviating, precipitating or modifying factors - Related Data Home Medications Medication Instructions Recorded Confirmed Montelukast [Singulair] 10 mg PO HS 01/23/17 01/23/22 amLODIPine [Norvasc] 5 mg PO HS 01/23/17 01/23/22 Fluticasone Nasal [place] [Flonase 1 spray EA NOSTRIL DAILY 05/12/21 05/14/21 Nasal [place]] Ibrutinib [Imbruvica] 420 mg PO DAILY 05/12/21 01/23/22 Latanoprost [Xalatan 0.005%] 1 drop BOTH EYES HS 05/12/21 01/23/22 Pseudoephedrine 12Hr [Sudafed 12Hr] 120 mg PO Q12H PRN 01/23/22 01/23/22 Allergies Allergy/AdvReac Type Severity Reaction Status Date / Time No Known Allergies Allergy Verified 01/23/22 13:11 Review of Systems ROS Statement: Those systems with pertinent positive or pertinent negative responses have been documented in the HPI. ROS Other: All systems not noted in ROS Statement are negative. Past Medical History Past Medical History: Cancer, Hypertension Additional Past Medical History / Comment(s): anemia,fatigue,Waldenstrom Macroglobulinemia, lymphoma-intermittent chemo last 7-8 yrs-last chemo Dec 2017 History of Any Multi-Drug Resistant Organisms: None Reported Past Surgical History: No Surgical Hx Reported Additional Past Surgical History / Comment(s): bone aspirations x2 Past Anesthesia/Blood Transfusion Reactions: No Reported Reaction Past Psychological History: No Psychological Hx Reported Smoking Status: Never smoker Past Alcohol Use History: None Reported Past Drug Use History: None Reported - Past Family History Mother Family Medical History: No Reported History General Exam Limitations: no limitations General appearance: alert, in no apparent distress Head exam: Present: atraumatic, normocephalic, normal inspection Eye exam: Present: normal appearance, PERRL, EOMI. Absent: scleral icterus, conjunctival injection, periorbital swelling ENT exam: Present: normal exam, mucous membranes moist Neck exam: Present: normal inspection. Absent: tenderness, meningismus, lymphadenopathy Respiratory exam: Present: normal lung sounds bilaterally. Absent: respiratory distress, wheezes, rales, rhonchi, stridor Cardiovascular Exam: Present: regular rate, normal rhythm, normal heart sounds. Absent: systolic murmur, diastolic murmur, rubs, gallop, clicks GI/Abdominal exam: Present: soft, normal bowel sounds. Absent: distended, tenderness, guarding, rebound, rigid Extremities exam: Present: normal inspection, full ROM, normal capillary refill. Absent: tenderness, pedal edema, joint swelling, calf tenderness Back exam: Present: normal inspection Neurological exam: Present: alert, oriented X3, CN II-XII intact Psychiatric exam: Present: normal affect, normal mood Skin exam: Present: warm, dry, intact, normal color. Absent: rash Course Vital Signs 07/31/23 08/01/23 08/01/23 23:44 00:20 01:00 Temperature 98.1 F Pulse Rate 76 75 Pulse Rate [ 75 Site Interpreter ] Respiratory 16 14 Rate Blood Pressure 156/80 144/76 O2 Sat by Pulse 97 95 Oximetry 08/01/23 08/01/23 02:00 03:00 Temperature Pulse Rate 73 76 Pulse Rate [ Site Interpreter ] Respiratory 16 14 Rate Blood Pressure 143/83 138/79 O2 Sat by Pulse 94 L 95 Oximetry Chest Pain MDM - MDM Was pt. sent in by a medical professional or institution (, PA, STAKER SURVEYING, urgent care, hospital, or senior care...) When possible be specific @ -No Did you speak to anyone other than the patient for history (EMS, parent, family, police, friend...)? What history was obtained from this source @ -I spoke with EMS who did provide him with a prehospital nitro Did you review nursing and triage notes (agree or disagree)? Why? @ -I reviewed and agree with nursing and triage notes Were old charts reviewed (outside hosp., previous admission, EMS record, old EKG, old radiological studies, urgent care reports/EKG's, senior care records)? Report findings @ -No old charts were reviewed Differential Diagnosis (chest pain, altered mental status, abdominal pain women, abdominal pain men, vaginal bleeding, weakness, fever, dyspnea, syncope, headache, dizziness, GI bleed, back pain, seizure, CVA, palpatations, mental health, musculoskeletal)? @ -Differential Chest Pain: Stable Angina, Unstable Angina, STEMI, NSTEMI Aortic Dissection, Pneumothorax, Musculoskeletal, Esophageal Spasm GERD, Cholecystitis, Pancreatitis, Zoster, this is not meant to be an all-inclusive list. EKG interpreted by me (3pts min.). @ -Yes and demonstrates sinus rhythm with a rate of 69. SC interval 161. QRS 102. QTc of 409. There are some PACs. No acute ST segment elevations or depressions X-rays interpreted by me (1pt min.). @ -Yes and demonstrates no acute process CT interpreted by me (1pt min.). @ -None done U/S interpreted by me (1pt. min.). @ -None done What testing was considered but not performed or refused? (CT, X-rays, U/S, labs)? Why? @ -Serial troponins and echo however patient will not be admitted What meds were considered but not given or refused? Why? @ -None Did you discuss the management of the patient with other professionals (professionals i.e. , PA, STAKER SURVEYING, lab, RT, psych nurse, manager social responsibility, valuation manager, teacher, budget officer, case worker)? Give summary @ -No Was smoking cessation discussed for >3mins.? @ -No Was critical care preformed (if so, how long)? @ -No Were there social determinants of health that impacted care today? How? (Homelessness, low income, unemployed, alcoholism, drug addiction, transportation, low edu. Level, literacy, decrease access to med. care, alf, rehab)? @ -No Was there de-escalation of care discussed even if they declined (Discuss DNR or withdrawal of care, Hospice)? DNR status @ -No What co-morbidities impacted this encounter? (DM, HTN, Smoking, COPD, CAD, Cancer, CVA, ARF, Chemo, Hep., AIDS, mental health diagnosis, sleep apnea, morbid obesity)? @ -Waldenstrm's macroglobulinemia Was patient admitted / discharged? Hospital course, mention meds given and route, prescriptions, significant lab abnormalities, going to OR and other pertinent info. @ -Upon arrival patient seen and evaluated in room 1. Thorough history and physical exam was performed. Patient placed on continuous pulse ox and cardiac monitoring. Twelve-lead EKG is obtained. Laboratory studies are conducted and chest x-ray is performed. Troponin is negative. Did discuss this with the patient and recommended admission for serial troponins and echo. Patient refused knowing the risks of going home. Risks include permanent disability and even . Patient feels pain-free at this time. Requested to perform a second troponin for which the patient was agreeable. Second troponin returns and is negative. At this time the patient be discharged home. Recommended that he follow-up with his primary care doctor and have stress testing and an echo. Return to the emergency room for any new or worsening symptoms. Patient agreeable to plan and was discharged home in stable condition Undiagnosed new problem with uncertain prognosis? @ -No Drug Therapy requiring intensive monitoring for toxicity (Heparin, Nitro, Insulin, Cardizem)? @ -No Were any procedures done? @ -No Diagnosis/symptom? @ -Acute chest pain Acute, or Chronic, or Acute on Chronic? @ -Acute Uncomplicated (without systemic symptoms) or Complicated (systemic symptoms)? @ -Complicated Side effects of treatment? @ -No Exacerbation, Progression, or Severe Exacerbation? @ -No Poses a threat to life or bodily function? How? (Chest pain, [place], [place], pneumonia, PE, COPD, DKA, ARF, appy, cholecystitis, CVA, Diverticulitis, Homicidal, Suicidal, threat to staff... and all critical care pts) @ -No Disposition Clinical Impression: Chest pain Disposition: HOME SELF-CARE Condition: Stable Instructions (If sedation given, give patient instructions): Chest Pain (ED) Additional Instructions: Please follow-up with your primary care doctor. They may consider testing such as echo, stress test and gallbladder ultrasound. Please return for any new or worsening symptoms Is patient prescribed a controlled substance at d/c from ED?: No Referrals: None,Stated [REFERRING] - 1-2 days Time of Disposition: 03:33
[2023-08-01 04:15] VITALS: BP 138/79; PULSE 76; RESP 14
--- NOTE | 2023-08-01 07:33 | XR ---
EXAMINATION TYPE: XR chest 2V DATE OF EXAM: 08/01/2023 COMPARISON: 01/23/2017 HISTORY: 68-year-old male with chest pain TECHNIQUE: PA and lateral views FINDINGS: Heart normal size. Aorta and pulmonary vasculature within normal limits. 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 No hubert consolidation or pleural effusion. IMPRESSION: Chronic changes without acute process seen.
== END 2023-08-01 03:45 | disposition home or self-care (01) ==
LOC: EC 23:36
DX: C88.0 Waldenstrom macroglobulinemia (principal)
CPT/HCPCS: 36415; 71046; 80053; 83690; 83735; 84484; 85025; 85610; 85730; 93005; 99285